=== PATIENT | female | born 1995 | race Caucasian/White ===

== ENCOUNTER 2018-08-19 06:45 | Day surgery (SDC) | payer OTHER ==
[~2018-08-19] VITALS: Ht 167.6 cm; Wt 81.7 kg
[2018-08-19 07:50] VITALS: Ht 167.6 cm; Wt 81.7 kg
[2018-08-19 08:13] VITALS: BP 108/58; PULSE 45; RESP 16
[2018-08-19] MEDS ORDERED: PROPOFOL 40 ML ONE (08:43)
[2018-08-19] MEDS ORDERED: LIDOCAINE 100 MG SYRINGE ONE (08:43)
[2018-08-19] MEDS ORDERED: GLYCOPYRROLATE 0.4 MG INJ ONE (08:43)
--- NOTE | 2018-08-19 08:47 | PREAC ---
Date/Time of Note Date/Time of Note DATE: 08/19/18 TIME: 08:46 Anesthesia Eval and Record Evaluation Time Pre-Procedure Interview DATE: 08/19/18 TIME: 08:46 Age 23 Sex female NPO: 8 hrs Preoperative diagnosis abd pain Planned procedure egd, colonoscopy Past Medical History Past Medical History: Includes GI: GERD, Obesity Surgery & Anesthesia Issues No known issue Meds Anticoagulation: No Beta Lalitha within 24 hr: No Reason Beta Lalitha not given: Pt. not on B-Lalitha Reported Medications [None] No Conflict Check 08/19/18 Meds reviewed: Yes Allergies Coded Allergies: No Known Allergy (Unverified , 08/19/18) Allergies Reviewed: Yes Labs/Studies Labs Reviewed: Reviewed by anesthesiologist test: Negative Pre-procedure Exam Last vitals Vital Signs Date Temp Pulse Resp B/P (MAP) Pulse Ox O2 O2 Flow FiO2 Time Delivery Rate 08/19/18 97.8 45 16 108/58 97 Room Air 08:13 (75) Airway: Adequate mouth opening, Adequate thyromental dist Mallampati: Mallampati II Teeth: Normal Lung: Normal Heart: Normal ASA Physical Status ASA physical status: 2 Emergency: None Planned Anesthetic General/MAC: Mask Pre-operative Attestations Prior to commencing anesthesia and surgery, the patient was re-evaluated, there was verification of: *The patient's identity *The results of appropriate recent lab work and preoperative vital signs *The above evaluation not changing prior to induction *Anesthetic plan, risk benefits, alternative and complications discussed with patient/family; questions answered; patient/family understands, accepts and wishes to proceed. ZEESHAN SALGUERO Aug 19, 2018 08:47
[2018-08-19 09:41] VITALS: BP 99/64; PULSE 46; RESP 18
--- NOTE | 2018-08-20 07:59 | PAC ---
Date/Time of Note Date/Time of Note DATE: 08/20/18 TIME: 07:59 Post-Anesthesia Notes Post-Anesthesia Note Last documented vital signs Vital Signs Date Temp Pulse Resp B/P (MAP) Pulse Ox O2 O2 Flow FiO2 Time Delivery Rate 08/19/18 46 18 99/64 (76) 96 Room Air 09:41 08/19/18 97.8 08:13 Activity: WNL Respiratory function: WNL Cardiovascular function: WNL Mental status: Baseline Pain reasonably controlled: Yes Hydration appropriate: Yes Nausea/Vomiting absent: Yes ZEESHAN SALGUERO Aug 20, 2018 07:59
== END 2018-08-19 10:04 | disposition home or self-care (01) ==
LOC: GIL 06:45
PROVIDERS: ATTEND Internal Medicine Gastroenterology
DX: K64.8 Other hemorrhoids (principal); K29.60 Other gastritis without bleeding
CPT/HCPCS: 43239; 45378; 84703; 88305; 88312; J2001; Z7610